=== PATIENT | female | born 1990 ===

== ENCOUNTER 2017-03-26 20:41 | Emergency (ER) | payer MEDICAID ==
[2017-03-26 20:41] VITALS: BMI 27.8
[2017-03-26 21:07] VITALS: BP 134/54; PULSE 72; RESP 16; TEMP 99.2; O2SAT 99
[2017-03-26] MEDS ORDERED: Sodium Chloride 0.9% 1,000 ML IV STA (21:45)
--- NOTE | 2017-03-26 21:46 | ED PDOC ---
HPI: Female Pain Time Seen by Provider: 03/26/17 21:09 Chief Complaint (Nursing): Female Genitourinary Chief Complaint (Provider): vaginal History Per: Patient History/Exam Limitations: no limitations Onset/Duration Of Symptoms: Days (5), Waxing/Waning Current Symptoms Are (Timing): Still Present Quality Of Discomfort: Cramping, "Pain" Additional History Per: Patient Additional Complaint(s): 26 y/o female presents with vaginal bleeding x 5 days. Associated pelvic pain, worse on right side, and vomiting 2x daily. Patient notes similar symptoms in past, states she was told she has an ovarian cysts. Denies fever, chest pain, shortness of breath, changes in bowel movements, dysuria, hematuria, vaginal discharge. No medication take for pain relief thus far. States periods usually regular, on OCP. Abnormal Vaginal Bleeding: Yes Last Menstral Period: 03/13/17 Past Medical History Reviewed: Historical Data, Nursing Documentation, Vital Signs Vital Signs: Last Vital Signs Temp 99.2 F 03/26/17 21:04 Pulse 72 03/26/17 21:04 Resp 16 03/26/17 21:04 BP 134/54 L 03/26/17 21:04 Pulse Ox 99 03/26/17 21:04 - Medical History PMH: Anxiety, Arthritis, Asthma, Back Problems, Depression, Fibromyalgia, Migraine, Multiple Sclerosis, Rheumatoid Arthritis - Family History Family History: States: Unknown Family Hx - Immunization History Hx Tetanus Toxoid Vaccination: No Hx Influenza Vaccination: No Hx Pneumococcal Vaccination: No - Home Medications Home Medications: Ambulatory Orders Medication Instructions Recorded Trazodone HCl 50 mg PO HS PRN 07/27/14 Famotidine 20 mg PO DAILY 04/17/16 Ferrous Sulfate 325 mg PO BID 04/17/16 Folic Acid 1 mg PO DAILY 04/17/16 Indomethacin 25 mg PO TID 04/17/16 Lexapro 20 mg PO DAILY 04/17/16 Mobic 15 mg PO DAILY 04/17/16 Riboflavin 100 mg PO TID 04/17/16 Topamax 100 mg PO BID 04/17/16 Meclizine [Meclizine*] 25 mg PO Q6 #30 tab 05/26/16 Ondansetron ODT [Zofran ODT] 1 odt PO BID PRN #10 odt 11/20/16 Ibuprofen [Motrin] 600 mg PO TID PRN #30 tab 08/14/16 Prednisone 50 mg PO DAILY #4 tablet 08/14/16 Nitrofurantoin Macrocrystals 100 mg PO BID #14 cap 03/27/17 [Macrobid] - Allergies Allergies/Adverse Reactions: Allergies Allergy/AdvReac Type Severity Reaction Status Date / Time latex Allergy RASH Verified 03/26/17 21:04 Review of Systems ROS Statement: Except As Marked, All Systems Reviewed And Found Negative Genitourinary Female: Positive for: Vaginal Bleeding, Pelvic Pain Physical Exam - Reviewed Nursing Documentation Reviewed: Yes Vital Signs Reviewed: Yes - Physical Exam Appears: Positive for: Well, Non-toxic, No Acute Distress Head Exam: Positive for: ATRAUMATIC, NORMAL INSPECTION, NORMOCEPHALIC Skin: Positive for: Normal Color Eye Exam: Positive for: Normal appearance ENT: Positive for: Normal ENT Inspection Cardiovascular/Chest: Positive for: Regular Rate, Rhythm Respiratory: Positive for: Normal Breath Sounds Gastrointestinal/Abdominal: Positive for: Tenderness (diffuse lower discomfort to palpation) Pelvic Exam: Positive for: External Exam Normal, No Cerv. Motion Tender, Blood ( vaginal vault), Other (exam chaperoned by [facility] tech). Negative for: Active Bleeding Back: Positive for: Normal Inspection Extremity: Positive for: Normal ROM Neurologic/Psych: Positive for: Alert, Oriented - Laboratory Results Result Diagrams: 03/26/17 21:50 03/26/17 22:44 - ECG O2 Sat by Pulse Oximetry: 99 - Progress ED Course And Treament: labs, urine, u/s, IV toradol, IV fluids, EXAM: US Pelvis, Transvaginal EXAM DATE/TIME: 03/26/2017 9:38 PM CLINICAL HISTORY: 26 years old, female; Signs and symptoms; Menstruation abnormalities; Irregular menstruation; Additional info: Pelvic pain, vaginal bleeding LMP 03/13/17 TECHNIQUE: Real-time transvaginal pelvic ultrasound (complete) with image documentation. Transvaginal imaging was used for better evaluation of the endometrium and adnexa. COMPARISON: There are no prior studies for comparison. FINDINGS: Uterus: Uterus measures approximately 8.6 x 3.5 x 5.4 cm. Endometrium measures approximately 3.4 mm in width. Right ovary: Right ovary measures 3.1 x 1.4 x 1.7 cm. There are multiple small follicles. There is intraovarian blood flow. Left ovary: Left ovary measures approximately 2.7 x 1.6 x 1.5 cm. There are multiple small follicles. There is intraovarian blood flow. Free fluid: There is no free fluid. Bladder: Bladder is empty IMPRESSION: Normal pelvic ultrasound Patient educated on u/s findings, still with RLQ pain; CT abd/pelvis ordered to rule out appendicitis EXAM: CT Abdomen and Pelvis With Intravenous Contrast EXAM DATE/TIME: 03/27/2017 12:01 AM CLINICAL HISTORY: 26 years old, female; Pain; Abdominal pain; Localized; Lower; Additional info: Lower abdominal pain TECHNIQUE: Axial computed tomography images of the abdomen and pelvis with intravenous contrast. All CT scans at this facility use one or more dose reduction techniques, viz.: automated exposure control; ma/kV adjustment per patient size (including targeted exams where dose is matched to indication; i.e. head); or iterative reconstruction technique. Coronal and sagittal reformatted images were created and reviewed. CONTRAST: 95 mL of [id number] administered intravenously. COMPARISON: US - TRANSVAGINAL 03/26/2017 10:49:46 PM FINDINGS: Lower thorax: Heart size is normal. There is minimal atelectasis at the lung bases. There is minimal scarring at the lung bases. There is a small hiatal hernia. ABDOMEN: Liver: The liver is enlarged. Gallbladder and bile ducts: unremarkable Pancreas: unremarkable Spleen: unremarkable Adrenals: unremarkable Kidneys and ureters: unremarkable Stomach and bowel: Stomach is incompletely distended which accentuates the gastric wall.Bowel rotation is normal. Small bowel is mildly distended. There is no obstruction. Cecum is low in the pelvis. Appendix and terminal ileum are unremarkable. There is moderate stool in the ascending and transverse colon. Left colon is incompletely distended. There is scattered diverticulosis Appendix: See stomach and bowel PELVIS: Bladder: unremarkable Reproductive: Uterus and adnexal structures are unremarkable. ABDOMEN and PELVIS: Intraperitoneal space: There is no significant fluid. There is no free air Bones/joints: There are no acute osseous abnormalities. There is sclerosis at the sacroiliac joints. Soft tissues: unremarkable Vasculature: Vascular structures are unremarkable. Lymph nodes: There is no pathologic adenopathy. IMPRESSION: Mild hepatomegaly; no acute solid visceral abnormality; no CT findings of appendicitis or diverticulitis Patient educated on findings, discharged with rx macrobid. Advised high fiber diet, fluids. 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 Disposition - Clinical Impression Clinical Impression: UTI (urinary tract infection), Pelvic pain in female, Constipation, Vaginal bleeding, abnormal - Patient ED Disposition Is Patient to be Admitted: No Counseled Patient/Family Regarding: Studies Performed, Diagnosis, Need For Followup, Rx Given - Disposition Disposition: Routine/Home Disposition Time: 01:10 Condition: IMPROVED Prescriptions: Nitrofurantoin Macrocrystals [Macrobid] 100 mg PO BID #14 cap Instructions: Urinary Tract Infection in Women (ED), Constipation (ED), High Fiber Diet (ED), Pelvic Pain in Women (ED)
[2017-03-26 22:04] LABS: BASO # 0.1 K/uL (0.0-0.2); BASO % 0.7 % (0.0-2.0); EOS # 0.1 K/uL (0.0-0.7); EOS % 0.7 % (0.0-4.0); HEMATOCRIT 34.3 % (34.0-47.0); LYMPH # 2.4 K/uL (1.0-4.3); MEAN CELL VOLUME 79.8 fl (81.0-99.0); MEAN CORPUSCULAR HEMOGLOBIN 25.5 pg (27.0-31.0); MEAN CORPUSCULAR HGB CONC 31.9 g/dL (33.0-37.0); MEAN PLATELET VOLUME 8.6 fl (7.2-11.7); MONO # 0.6 K/uL (0.0-0.8); MONO % 6.5 % (0.0-10.0); NEUT % 66.1 % (50.0-75.0); NRBC % 0.1 % (0.0-0.0); RED CELL DISTRIBUTION WIDTH 15.4 % (11.5-14.5); WHITE BLOOD COUNT 9.1 K/uL (4.8-10.8)
[2017-03-26 22:36] LABS: RBC URINE 12 /hpf (0-3); URINE BILIRUBIN NEGATIVE (NEGATIVE); URINE BLOOD LARGE (NEGATIVE); URINE COLOR YELLOW (YELLOW); URINE GLUCOSE (UA) NEG (Normal); URINE KETONE NEGATIVE (NEGATIVE); URINE LEUKOCYTE ESTERASE TRACE Leu/uL (Negative); URINE PROTEIN NEGATIVE (NEGATIVE); URINE UROBILINOGEN 0.2-1.0 mg/dL (0.2-1.0); WBC URINE 9 /hpf (0-5)
[2017-03-26 22:53] LABS: ALB/GLOB RATIO 1.1 (1.0-2.1); ALKALINE PHOSPHATASE 60 U/L (38-126); ALT/SGPT 26 U/L (9-52); AST/SGOT 21 U/L (14-36); BILIRUBIN,TOTAL 0.3 mg/dl (0.2-1.3); BLOOD UREA NITROGEN 10 mg/dl (7-17); CALCIUM 9.3 mg/dL (8.4-10.2); CARBON DIOXIDE 24 mmol/L (22-30); CHLORIDE 104 mmol/L (98-107); GFR AFRICAN-AMERICAN > 60; GLUCOSE,RANDOM 87 mg/dL (65-105); SODIUM 137 mmol/l (132-148); TOTAL PROTEIN 7.9 G/DL (6.3-8.2)
--- NOTE | 2017-03-26 23:44 | US ---
EXAM: US Pelvis, Transvaginal EXAM DATE/TIME: 03/26/2017 9:38 PM CLINICAL HISTORY: 26 years old, female; Signs and symptoms; Menstruation abnormalities; Irregular menstruation; Additional info: Pelvic pain, vaginal bleeding LMP 03/13/17 TECHNIQUE: Real-time transvaginal pelvic ultrasound (complete) with image documentation. Transvaginal imaging was used for better evaluation of the endometrium and adnexa. COMPARISON: There are no prior studies for comparison. FINDINGS: Uterus: Uterus measures approximately 8.6 x 3.5 x 5.4 cm. Endometrium measures approximately 3.4 mm in width. Right ovary: Right ovary measures 3.1 x 1.4 x 1.7 cm. There are multiple small follicles. There is intraovarian blood flow. Left ovary: Left ovary measures approximately 2.7 x 1.6 x 1.5 cm. There are multiple small follicles. There is intraovarian blood flow. Free fluid: There is no free fluid. Bladder: Bladder is empty IMPRESSION: Normal pelvic ultrasound
[2017-03-27] MEDS ORDERED: Iohexol 300 100 ML IJ ONE (00:27)
[2017-03-27] MEDS ORDERED: Sodium Chloride 0.9% 50 ML IV ONE (00:27)
--- NOTE | 2017-03-27 08:53 | CT ---
PROCEDURE: CT Abdomen and Pelvis with contrast HISTORY: lower abdominal pain COMPARISON: None. TECHNIQUE: Contrast dose: 95 cc of Omnipaque 300. Axial and reformatted coronal and sagittal CT images of the abdomen and pelvis were obtained after IV contrast administration. Radiation dose: Total exam DLP = 971.96 mGy-cm. This CT exam was performed using one or more of the following dose reduction techniques: Automated exposure control, adjustment of the mA and/or kV according to patient size, and/or use of iterative reconstruction technique. FINDINGS: LOWER THORAX: Unremarkable. LIVER: The liver is mildly enlarged demonstrate slight heterogeneous enhancement and attenuation without evidence of discrete mass. GALLBLADDER AND BILE DUCTS: Unremarkable. PANCREAS: Unremarkable. No gross lesion or ductal dilatation. SPLEEN: Unremarkable. ADRENALS: Unremarkable. No mass. KIDNEYS AND URETERS: Unremarkable. No hydronephrosis. No solid mass. VASCULATURE: Unremarkable. No aortic aneurysm. BOWEL: Unremarkable. No obstruction. No gross mural thickening. APPENDIX: Normal appendix. PERITONEUM: Unremarkable. No free fluid. No free air. LYMPH NODES: Unremarkable. No enlarged lymph nodes. BLADDER: Unremarkable. REPRODUCTIVE: The uterus is slightly prominent heterogeneous without evidence of discrete mass. BONES: No acute fracture. OTHER FINDINGS: None. IMPRESSION: No CT evidence of cholecystitis pancreatitis or appendicitis. Mild hepatomegaly with mild heterogeneous enhancement and attenuation of the liver noted without evidence of discrete mass. Preliminary report was submitted by virtual Radiology.
== END 2017-03-27 01:33 | disposition home or self-care (01) ==
LOC: H.ER 20:41
DX: N39.0 Urinary tract infection, site not specified (principal); K59.00 Constipation, unspecified; N92.6 Irregular menstruation, unspecified; N83.201 Unspecified ovarian cyst, right side; M79.7 Fibromyalgia; G35 Multiple sclerosis; M06.9 Rheumatoid arthritis, unspecified; F32.9 Major depressive disorder, single episode, unspecified; F41.9 Anxiety disorder, unspecified
CPT/HCPCS: 74177; 76830; 80053; 81003; 81025; 85025; 87086; 96374; 96375; 99283; J1885; J2405; J7040; Q9967

== ENCOUNTER 2017-04-02 15:07 | Emergency (ER) | payer MEDICAID ==
[2017-04-02 15:08] VITALS: BMI 27.8
[2017-04-02 15:17] VITALS: BP 152/80; PULSE 84; RESP 18; TEMP 98.5; O2SAT 98
[2017-04-02] MEDS ORDERED: Sodium Chloride 0.9% 1,000 ML IV STA (15:43)
--- NOTE | 2017-04-02 15:46 | ED PDOC ---
HPI: Headache Time Seen by Provider: 04/02/17 15:19 Chief Complaint (Nursing): Headache History Per: Patient Onset/Duration Of Symptoms: Days (1) Current Symptoms Are (Timing): Still Present Severity: Moderate Pain Scale Rating Of: 4 Quality: Aching Preceeding Symptoms: Known Migraine Symptoms Associated Symptoms: Photophobia Additional Complaint(s): Headache assoc with nausea since this AM. No head injury, no neck stiffness or fever. Past Medical History Vital Signs: Last Vital Signs Temp 98.5 F 04/02/17 15:10 Pulse 84 04/02/17 15:10 Resp 18 04/02/17 15:10 BP 152/80 H 04/02/17 15:10 Pulse Ox 98 04/02/17 15:10 - Medical History PMH: Anxiety, Arthritis, Asthma, Back Problems, Depression, Fibromyalgia, Migraine, Multiple Sclerosis, Rheumatoid Arthritis - Family History Family History: States: Unknown Family Hx - Immunization History Hx Tetanus Toxoid Vaccination: No Hx Influenza Vaccination: No Hx Pneumococcal Vaccination: No - Home Medications Home Medications: Ambulatory Orders Medication Instructions Recorded Trazodone HCl 50 mg PO HS PRN 07/27/14 Famotidine 20 mg PO DAILY 04/17/16 Ferrous Sulfate 325 mg PO BID 04/17/16 Folic Acid 1 mg PO DAILY 04/17/16 Indomethacin 25 mg PO TID 04/17/16 Lexapro 20 mg PO DAILY 04/17/16 Mobic 15 mg PO DAILY 04/17/16 Riboflavin 100 mg PO TID 04/17/16 Topamax 100 mg PO BID 04/17/16 Meclizine [Meclizine*] 25 mg PO Q6 #30 tab 05/26/16 Ondansetron ODT [Zofran ODT] 1 odt PO BID PRN #10 odt 05/26/16 Ibuprofen [Motrin] 600 mg PO TID PRN #30 tab 08/14/16 Prednisone 50 mg PO DAILY #4 tablet 08/14/16 Nitrofurantoin Macrocrystals 100 mg PO BID #14 cap 03/27/17 [Macrobid] Acetaminophen/Butalbital/Caf 1 tab PO Q8 #10 tab 04/02/17 [Fioricet] - Allergies Allergies/Adverse Reactions: Allergies Allergy/AdvReac Type Severity Reaction Status Date / Time latex Allergy RASH Verified 03/26/17 21:04 Review of Systems ROS Statement: Except As Marked, All Systems Reviewed And Found Negative Gastrointestinal: Positive for: Nausea Neurological: Positive for: Headache Physical Exam - Reviewed Nursing Documentation Reviewed: Yes Vital Signs Reviewed: Yes - Physical Exam Appears: Positive for: Non-toxic, No Acute Distress Head Exam: Positive for: ATRAUMATIC, NORMAL INSPECTION, NORMOCEPHALIC Skin: Positive for: Normal Color, Warm, DRY Eye Exam: Positive for: EOMI, Normal appearance, PERRL ENT: Positive for: Normal ENT Inspection Neck: Positive for: Normal, Painless ROM, Supple Cardiovascular/Chest: Positive for: Regular Rate, Rhythm Respiratory: Positive for: CNT, Normal Breath Sounds Gastrointestinal/Abdominal: Positive for: Normal Exam, Bowel Sounds, Soft Back: Positive for: Normal Inspection Extremity: Positive for: Normal ROM Neurologic/Psych: Positive for: Alert, Oriented - ECG O2 Sat by Pulse Oximetry: 98 Disposition - Clinical Impression Clinical Impression: Migraine - Patient ED Disposition Is Patient to be Admitted: No Counseled Patient/Family Regarding: Diagnosis, Need For Followup, Rx Given - Disposition Referrals: [facility] [Outside] Disposition: Routine/Home Disposition Time: 17:55 Condition: FAIR Prescriptions: Acetaminophen/Butalbital/Caf [Fioricet] 1 tab PO Q8 #10 tab Instructions: Migraine Headache (ED) Forms: [employer] (Persian)
== END 2017-04-02 18:45 | disposition home or self-care (01) ==
LOC: H.ER 15:07
DX: G43.909 Migraine, unspecified, not intractable, without status migrainosus (principal); F32.9 Major depressive disorder, single episode, unspecified; F41.9 Anxiety disorder, unspecified; G35 Multiple sclerosis; J45.909 Unspecified asthma, uncomplicated; M06.9 Rheumatoid arthritis, unspecified; M79.7 Fibromyalgia
CPT/HCPCS: 81025; 96374; 96375; 99284; J1885; J2405; J2765; J7040

== ENCOUNTER 2017-08-24 16:19 | Emergency (ER) | payer MEDICAID ==
[2017-08-24 16:20] VITALS: BMI 27.8
[2017-08-24 16:34] VITALS: TEMP 99.5
[2017-08-24] MEDS ORDERED: Sodium Chloride 0.9% 1,000 ML IV STA (17:20)
[2017-08-24] MEDS ORDERED: DiphenhydrAMINE 50 mg/ml Inj IVP STA (17:21)
[2017-08-24] MEDS ORDERED: DiphenhydrAMINE 50 mg/ml Inj ONE (17:46)
[2017-08-24 18:07] LABS: BASO % 0.4 % (0.0-2.0); EOS # 0.1 K/uL (0.0-0.7); EOS % 0.6 % (0.0-4.0); HEMOGLOBIN 11.5 g/dL (12.0-16.0); LYMPH # 2.7 K/uL (1.0-4.3); LYMPH % 28.7 % (20.0-40.0); MEAN CELL VOLUME 78.8 fl (81.0-99.0); MEAN CORPUSCULAR HEMOGLOBIN 25.2 pg (27.0-31.0); MEAN PLATELET VOLUME 8.8 fl (7.2-11.7); MONO # 0.7 K/uL (0.0-0.8); MONO % 7.2 % (0.0-10.0); NEUT % 63.1 % (50.0-75.0); RBC 4.58 Mil/uL (3.80-5.20); RED CELL DISTRIBUTION WIDTH 16.7 % (11.5-14.5); WHITE BLOOD COUNT 9.5 K/uL (4.8-10.8)
[2017-08-24 18:15] LABS: ALBUMIN 4.3 g/dL (3.5-5.0); CALCIUM 9.5 mg/dL (8.4-10.2); GFR AFRICAN-AMERICAN > 60; GFR NON-AFRICAN AMERICAN > 60
[2017-08-24 18:19] LABS: ALT/SGPT 27 U/L (9-52); AST/SGOT 28 U/L (14-36); BLOOD UREA NITROGEN 15 mg/dl (7-17)
[2017-08-24 18:26] LABS: BARBITURATES, UR NEGATIVE (NEGATIVE); BENZODIAZEPINES, UR NEGATIVE (NEGATIVE); OPIATES, UR NEGATIVE (NEGATIVE); PHENCYCLIDINE, UR NEGATIVE (NEGATIVE)
--- NOTE | 2017-08-24 19:05 | ED PDOC ---
HPI: Headache Time Seen by Provider: 08/24/17 17:11 Chief Complaint (Nursing): Shortness Of Breath Chief Complaint (Provider): Headache History Per: Patient History/Exam Limitations: no limitations Onset/Duration Of Symptoms: Days (x5) Current Symptoms Are (Timing): Still Present Quality: "Pain" Preceeding Symptoms: None Additional Complaint(s): 26 year old female with a past medical history of anemia, asthma and migraine headaches presents to the ED complaining of a left sided headache she has been experiencing since Friday. The patient states she has been taking topamax and meclizine with no relief. She reports that her headache is associated with left sided facial numbness, dizziness, vertigo, vomiting, nausea and paresthesia to left arm. Patient states that she has experienced all of these symptoms in the past. Patient states that she presents to the ER today because the headache has been going on for too long and her medications are not working. PMD: Dr. Shin Past Medical History Reviewed: Historical Data, Nursing Documentation, Vital Signs Vital Signs: Last Vital Signs Temp 99.5 F 08/24/17 16:29 Pulse 82 08/24/17 16:29 Resp 16 08/24/17 16:29 BP 115/74 08/24/17 16:29 Pulse Ox 98 08/24/17 17:42 - Medical History PMH: Anemia, Anxiety, Arthritis, Asthma, Back Problems, Depression, Fibromyalgia , Migraine, Multiple Sclerosis, Rheumatoid Arthritis - Surgical History Surgical History: No Surg Hx - Family History Family History: States: Unknown Family Hx, CAD - Social History Alcohol: Occasional Drugs: Other (Medicinal marijuana for nausea) - Immunization History Hx Tetanus Toxoid Vaccination: No Hx Influenza Vaccination: No Hx Pneumococcal Vaccination: No - Home Medications Home Medications: Ambulatory Orders Medication Instructions Recorded Trazodone HCl 50 mg PO HS PRN 07/27/14 Famotidine 20 mg PO DAILY 04/17/16 Ferrous Sulfate 325 mg PO BID 04/17/16 Folic Acid 1 mg PO DAILY 04/17/16 Indomethacin 25 mg PO TID 04/17/16 Lexapro 20 mg PO DAILY 04/17/16 Mobic 15 mg PO DAILY 04/17/16 Riboflavin 100 mg PO TID 04/17/16 Topamax 100 mg PO BID 04/17/16 Meclizine [Meclizine*] 25 mg PO Q6 #30 tab 05/26/16 Ondansetron ODT [Zofran ODT] 1 odt PO BID PRN #10 odt 05/26/16 Ibuprofen [Motrin] 600 mg PO TID PRN #30 tab 08/14/16 Prednisone 50 mg PO DAILY #4 tablet 08/14/16 Nitrofurantoin Macrocrystals 100 mg PO BID #14 cap 03/27/17 [Macrobid] Acetaminophen/Butalbital/Caf 1 tab PO Q8 #10 tab 04/02/17 [Fioricet] Albuterol HFA [Ventolin HFA 90 2 puff IH 07/22/17 mcg/actuation (8 g)] Loratadine/Pseudoephedrine 5 - 120 mg PO 07/22/17 [Claritin-D 24 Hour Tablet] Meclizine HCl [Motion Sickness II] 25 mg PO 07/22/17 Ondansetron ODT [Zofran ODT] 1 odt PO Q6 PRN #20 odt 08/24/17 - Allergies Allergies/Adverse Reactions: Allergies Allergy/AdvReac Type Severity Reaction Status Date / Time latex Allergy RASH Verified 03/26/17 21:04 Latex, Natural Rubber AdvReac RASH Verified 07/04/17 11:49 Review of Systems ROS Statement: Except As Marked, All Systems Reviewed And Found Negative Gastrointestinal: Positive for: Nausea Neurological: Positive for: Numbness (left sided facial), Headache, Dizziness, Other (paresthesia to left arm) Physical Exam - Reviewed Nursing Documentation Reviewed: Yes Vital Signs Reviewed: Yes - Physical Exam Appears: Positive for: Well, Non-toxic Head Exam: Positive for: ATRAUMATIC, NORMOCEPHALIC Skin: Positive for: Warm, Dry Eye Exam: Positive for: EOMI, PERRL ENT: Negative for: Pharyngeal Erythema, Tonsillar Exudate Neck: Positive for: Painless ROM, Supple Cardiovascular/Chest: Positive for: Regular Rate, Rhythm, Chest Non Tender. Negative for: Murmur Respiratory: Positive for: Normal Breath Sounds. Negative for: Wheezing Gastrointestinal/Abdominal: Positive for: Soft. Negative for: Tenderness Back: Positive for: Normal Inspection. Negative for: Muscle Spasm Extremity: Positive for: Normal ROM. 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 Negative for: Motor/Sensory Deficits, Gait, Aphasia, Facial Droop - Laboratory Results Result Diagrams: 08/24/17 17:59 08/24/17 17:59 - ECG O2 Sat by Pulse Oximetry: 98 (RA) Pulse Ox Interpretation: Normal Medical Decision Making Medical Decision Makin Initial Impression 26 y/o female presenting with intractable migraine headache Initial Plan: * Type and Screen * EKG * CMP * Drug Screen * Magnesium * Phosphorous * TSH * Troponin * Upreg * Udip * CBC * Benadryl 25mg * IVP NS 1000mls * IV 999 mls/hr * Reglan 10mg IVP * Toradol 30mg IVP * Tylenol 975mg PO * Reevaluation 10p on initial eval pt was still nauseous. additional zofran given. reeval pt feeling better. labs mild anemia, otherwise unremarkable. stable for dc. Documented by Vivian Gomes acting as a scribe for Samantha Bobby MD. All medical record entries made by the Scribe were at my direction and personally dictated by me. I have reviewed the chart and agree that the record accurately reflects my personal performance of the history, physical exam, medical decision making, and the department course for this patient. I have also personally directed, reviewed, and agree with the discharge instructions and disposition. Disposition - Clinical Impression Clinical Impression: Migraine - Disposition Referrals: Sumeet Shin MD [Medical Doctor] - Disposition: Routine/Home Disposition Time: 23:01 Condition: IMPROVED Prescriptions: Ondansetron ODT [Zofran ODT] 1 odt PO Q6 PRN #20 odt PRN Reason: Nausea/Vomiting Instructions: Migraine Headache (DC) Forms: [facility] ED School/Work Excuse
[2017-08-24 19:21] VITALS: BP 115/64; PULSE 63; RESP 14
[2017-08-24] MEDS ORDERED: Dextrose 5%/Lactated Ringer's 1,000 ML IV SCH (20:00)
[2017-08-24 22:59] VITALS: O2SAT 98
--- NOTE | 2017-08-25 21:49 | CARD ---
APPROVED REPORT EKG Measurement Heart [id number] <Conclusion> Normal sinus rhythm Possible Left atrial enlargement Borderline ECG
== END 2017-08-24 23:45 | disposition home or self-care (01) ==
LOC: H.ER 16:19
DX: G43.919 Migraine, unspecified, intractable, without status migrainosus (principal); D64.9 Anemia, unspecified; F32.9 Major depressive disorder, single episode, unspecified; F41.9 Anxiety disorder, unspecified; G35 Multiple sclerosis; J45.909 Unspecified asthma, uncomplicated; M06.9 Rheumatoid arthritis, unspecified; M79.7 Fibromyalgia
CPT/HCPCS: 80053; 80324; 80345; 80346; 80349; 80353; 80358; 80361; 81025; 83735; 83992; 84100; 84443; 84484; 85025; 86850; 86900; 93005; 96374; 96375; 99283; J1200; J1885; J2405; J2765; J7040; J7120

== ENCOUNTER 2017-11-11 21:35 | Emergency (ER) | payer MEDICAID ==
[2017-11-11 21:36] VITALS: BMI 27.8
[2017-11-11 21:47] VITALS: O2SAT 100
[2017-11-11] MEDS ORDERED: Sodium Chloride 0.9% 1,000 ML IV STA (22:10)
[2017-11-11 22:14] VITALS: RESP 18
--- NOTE | 2017-11-11 22:23 | ED PDOC ---
HPI: Chest Pain Time Seen by Provider: 11/11/17 21:48 Chief Complaint (Nursing): Chest Pain Chief Complaint (Provider): chest pain History Per: Patient History/Exam Limitations: no limitations Onset/Duration Of Symptoms: Days (yesterday) Current Symptoms Are (Timing): Still Present Additional Complaint(s): Pt. dx with strep throat yesterday and put on bactrim. Pt. here today as her chest hurts and pain on taking deep breath. Also has cough, nasal congestion. No weakness, diarrhea, headaches, dizziness, neck pain. Able to swallow but with pain. No dyspnea. No abd pain. Has promethazine with codeine for pain. Past Medical History Reviewed: Nursing Documentation, Vital Signs Vital Signs: Last Vital Signs Temp 98.9 F 11/11/17 21:40 Pulse 76 11/11/17 21:55 Resp 18 11/11/17 21:55 BP 136/83 11/11/17 21:55 Pulse Ox 100 11/11/17 22:27 - Medical History PMH: Anemia, Anxiety, Arthritis, Asthma, Back Problems, Depression, Fibromyalgia , Migraine, Multiple Sclerosis, Rheumatoid Arthritis - Surgical History Surgical History: Denies: CABG - Family History Family History: States: Unknown Family Hx - Social History Alcohol: None - Immunization History Hx Tetanus Toxoid Vaccination: No Hx Influenza Vaccination: No Hx Pneumococcal Vaccination: No - Home Medications Home Medications: Ambulatory Orders Medication Instructions Recorded Trazodone HCl 50 mg PO HS PRN 07/27/14 Famotidine 20 mg PO DAILY 04/17/16 Ferrous Sulfate 325 mg PO BID 04/17/16 Folic Acid 1 mg PO DAILY 04/17/16 Indomethacin 25 mg PO TID 04/17/16 Lexapro 20 mg PO DAILY 04/17/16 Mobic 15 mg PO DAILY 04/17/16 Riboflavin 100 mg PO TID 04/17/16 Topamax 100 mg PO BID 04/17/16 Meclizine [Meclizine*] 25 mg PO Q6 #30 tab 05/26/16 Ondansetron ODT [Zofran ODT] 1 odt PO BID PRN #10 odt 05/26/16 Ibuprofen [Motrin] 600 mg PO TID PRN #30 tab 08/14/16 Prednisone 50 mg PO DAILY #4 tablet 08/14/16 Nitrofurantoin Macrocrystals 100 mg PO BID #14 cap 03/27/17 [Macrobid] Acetaminophen/Butalbital/Caf 1 tab PO Q8 #10 tab 04/02/17 [Fioricet] Albuterol HFA [Ventolin HFA 90 2 puff IH 07/22/17 mcg/actuation (8 g)] Loratadine/Pseudoephedrine 5 - 120 mg PO 07/22/17 [Claritin-D 24 Hour Tablet] Meclizine HCl [Motion Sickness II] 25 mg PO 07/22/17 Ondansetron ODT [Zofran ODT] 1 odt PO Q6 PRN #20 odt 08/24/17 Ibuprofen [Motrin] 600 mg PO TID 7 Days tab 11/11/17 - Allergies Allergies/Adverse Reactions: Allergies Allergy/AdvReac Type Severity Reaction Status Date / Time latex Allergy RASH Verified 03/26/17 21:04 Latex, Natural Rubber AdvReac RASH Verified 07/04/17 11:49 Review of Systems ROS Statement: Except As Marked, All Systems Reviewed And Found Negative ENT: Positive for: Nose Pain, Nose Discharge, Nose Congestion, Throat Pain Cardiovascular: Positive for: Chest Pain Respiratory: Positive for: Cough, Pleuritic Pain Physical Exam - Reviewed Nursing Documentation Reviewed: Yes Vital Signs Reviewed: Yes - Physical Exam Appears: Positive for: Non-toxic, No Acute Distress Head Exam: Positive for: ATRAUMATIC, NORMAL INSPECTION, NORMOCEPHALIC Skin: Positive for: Normal Color, Warm, DRY Eye Exam: Positive for: EOMI, Normal appearance, PERRL ENT: Positive for: Nasal Congestion, Pharyngeal Erythema, Tonsillar Swelling ( mild b/l). Negative for: Tonsillar Exudate Neck: Positive for: Normal, Painless ROM Cardiovascular/Chest: Positive for: Regular Rate, Rhythm Respiratory: Positive for: CNT, Normal Breath Sounds Gastrointestinal/Abdominal: Positive for: Normal Exam, Soft. Negative for: Tenderness Back: Positive for: Normal Inspection. Negative for: L CVA Tenderness, R CVA Tenderness Extremity: Positive for: Normal ROM. 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 Negative for: Motor/Sensory Deficits, Facial Droop - Laboratory Results Result Diagrams: 11/11/17 22:22 05/08/18 22:22 Interpretation Of Abn Labs: 11.5 wbc - ECG ECG: Positive for: Interpreted By Me, Viewed By Me ECG Rhythm: Positive for: Normal QRS, Normal ST Segment, Sinus Rhythm O2 Sat by Pulse Oximetry: 100 Pulse Ox Interpretation: Normal - Radiology X-Ray: Interpreted by Me, Viewed By Me X-Ray Interpretation: No Acute Disease - Progress ED Course And Treament: 1131: Stable. AAOx3. Pain free. Tolerated PO. Fu with pcp. Disposition - Clinical Impression Clinical Impression: Chest pain, Pharyngitis - Patient ED Disposition Is Patient to be Admitted: No Counseled Patient/Family Regarding: Studies Performed, Diagnosis, Need For Followup, Rx Given - Disposition Referrals: Arjun Wolf MD [Family Provider] - 11/12/17 Disposition: Routine/Home Disposition Time: 23:15 Condition: STABLE Additional Instructions: Return if not better in 3 days. Continue your antibiotics without fail. Prescriptions: Ibuprofen [Motrin] 600 mg PO TID 7 Days tab Instructions: Sore Throat in Adults, Chest Pain (DC) Forms: [employer] ([employer]), [facility] ED School/Work Excuse
[2017-11-11 22:33] LABS: BASO % 0.4 % (0.0-2.0); EOS # 0.1 K/uL (0.0-0.7); EOS % 0.7 % (0.0-4.0); HEMOGLOBIN 10.7 g/dL (12.0-16.0); LYMPH # 2.7 K/uL (1.0-4.3); LYMPH % 23.8 % (20.0-40.0); MEAN CELL VOLUME 79.3 fl (81.0-99.0); MEAN CORPUSCULAR HEMOGLOBIN 25.8 pg (27.0-31.0); MEAN CORPUSCULAR HGB CONC 32.5 g/dL (33.0-37.0); MEAN PLATELET VOLUME 8.7 fl (7.2-11.7); MONO # 0.9 K/uL (0.0-0.8); MONO % 7.9 % (0.0-10.0); NEUT # 7.7 K/uL (1.8-7.0); NEUT % 67.2 % (50.0-75.0); NRBC % 0.1 % (0.0-0.0); RBC 4.15 Mil/uL (3.80-5.20); RED CELL DISTRIBUTION WIDTH 15.4 % (11.5-14.5); WHITE BLOOD COUNT 11.5 K/uL (4.8-10.8)
[2017-11-11 22:36] LABS: BLOOD UREA NITROGEN 13 mg/dl (7-17); GFR AFRICAN-AMERICAN > 60; GFR NON-AFRICAN AMERICAN > 60
[2017-11-12 00:13] VITALS: BP 117/72; PULSE 66; TEMP 98.6
--- NOTE | 2017-11-12 08:00 | RAD ---
HISTORY: Chest pain, shortness of breath COMPARISON: No prior. FINDINGS: LUNGS: No active pulmonary disease. PLEURA: No significant pleural effusion identified, no pneumothorax apparent. CARDIOVASCULAR: Normal. OSSEOUS STRUCTURES: No significant abnormalities. VISUALIZED UPPER ABDOMEN: Normal. OTHER FINDINGS: None. IMPRESSION: No active disease. Concordant results with the preliminary interpretation rendered by the emergency department physician procedure.
--- NOTE | 2017-11-13 12:27 | CARD ---
APPROVED REPORT EKG Measurement Heart [id number] <Conclusion> Normal sinus rhythm Normal ECG
== END 2017-11-12 00:13 | disposition home or self-care (01) ==
LOC: H.ER 21:35
DX: R07.89 Other chest pain (principal); J02.9 Acute pharyngitis, unspecified; F32.9 Major depressive disorder, single episode, unspecified; F41.9 Anxiety disorder, unspecified; G35 Multiple sclerosis; J45.909 Unspecified asthma, uncomplicated; M06.9 Rheumatoid arthritis, unspecified; M79.7 Fibromyalgia
CPT/HCPCS: 71045; 80048; 81025; 84484; 85025; 87070; 87430; 93005; 96361; 96374; 99285; J1885; J7040

== ENCOUNTER 2017-11-16 11:06 | Emergency (ER) | payer MEDICAID ==
[2017-11-16 11:08] VITALS: BMI 27.8
[2017-11-16] MEDS ORDERED: Penicillin G Benzathine 1.2 Mill Unit/2 ml Syr IM ONE (11:56)
--- NOTE | 2017-11-16 12:59 | ED PDOC ---
HPI: CCC, URI, Sore Throat Time Seen by Provider: 11/16/17 11:17 Chief Complaint (Nursing): ENT Problem Chief Complaint (Provider): fever History Per: Patient History/Exam Limitations: no limitations Have you had recent travel within the past 21 days to any of the following countries: [place], [place], [place] or [place]?: No Onset/Duration Of Symptoms: Days Current Symptoms Are (Timing): Still Present Location Of Pain: None Associated Symptoms: Fever, Sore Throat Ear Symptoms: Bilateral: None Severity: None Additional Complaint(s): 27 year old female presenting with fever ad sore throat x1 week. Patient reports that she was recently seen by her primary care provider and prescribed bactrim. She states that even after taking the antibiotic x 1 week, her symptoms still persisted. Patient also states that she does have a history of recurrent throat infections and has been seen by ENT for these infections in the past. Otherwise (-) rash, (-) difficulty swallowing, (-) URI symptoms, (-) SOB, (-) chest pain, (-) N/V/D, (-) abdominal pain, (-) flank pain, (-) urinary symptoms, (-) recent travel, (-) sick contacts. PMD: Arjun George Past Medical History Reviewed: Historical Data, Nursing Documentation, Vital Signs Vital Signs: Last Vital Signs Temp 98.9 F 11/16/17 13:16 Pulse 88 11/16/17 13:16 Resp 15 11/16/17 13:16 BP 115/75 11/16/17 13:16 Pulse Ox 100 11/16/17 13:16 - Medical History PMH: Anemia, Anxiety, Arthritis, Asthma, Back Problems, Depression, Fibromyalgia , Migraine, Multiple Sclerosis, Rheumatoid Arthritis - Surgical History Surgical History: Denies: CABG - Family History Family History: States: Unknown Family Hx, CAD - Social History Current smoker - smoking cessation education provided: No Ex-Smoker (has not smoked in the last 12 months): No Alcohol: Social Drugs: Denies - Immunization History Hx Tetanus Toxoid Vaccination: No Hx Influenza Vaccination: No Hx Pneumococcal Vaccination: No - Home Medications Home Medications: Ambulatory Orders Medication Instructions Recorded Trazodone HCl 50 mg PO HS PRN 07/27/14 Famotidine 20 mg PO DAILY 10/12/16 Ferrous Sulfate 325 mg PO BID 04/17/16 Folic Acid 1 mg PO DAILY 04/17/16 Indomethacin 25 mg PO TID 04/17/16 Lexapro 20 mg PO DAILY 04/17/16 Mobic 15 mg PO DAILY 04/17/16 Riboflavin 100 mg PO TID 04/17/16 Topamax 100 mg PO BID 04/17/16 Meclizine [Meclizine*] 25 mg PO Q6 #30 tab 05/26/16 Ondansetron ODT [Zofran ODT] 1 odt PO BID PRN #10 odt 05/26/16 Ibuprofen [Motrin] 600 mg PO TID PRN #30 tab 08/14/16 Prednisone 50 mg PO DAILY #4 tablet 08/14/16 Nitrofurantoin Macrocrystals 100 mg PO BID #14 cap 03/27/17 [Macrobid] Acetaminophen/Butalbital/Caf 1 tab PO Q8 #10 tab 04/02/17 [Fioricet] Albuterol HFA [Ventolin HFA 90 2 puff IH 07/22/17 mcg/actuation (8 g)] Loratadine/Pseudoephedrine 5 - 120 mg PO 07/22/17 [Claritin-D 24 Hour Tablet] Meclizine HCl [Motion Sickness II] 25 mg PO 07/22/17 Ondansetron ODT [Zofran ODT] 1 odt PO Q6 PRN #20 odt 08/24/17 Ibuprofen [Motrin] 600 mg PO TID 7 Days tab 11/11/17 - Allergies Allergies/Adverse Reactions: Allergies Allergy/AdvReac Type Severity Reaction Status Date / Time latex Allergy RASH Verified 03/26/17 21:04 Latex, Natural Rubber AdvReac RASH Verified 07/04/17 11:49 Review of Systems ROS Statement: Except As Marked, All Systems Reviewed And Found Negative Constitutional: Positive for: Fever ENT: Positive for: Throat Pain. Negative for: Nose Discharge, Throat Swelling Cardiovascular: Negative for: Chest Pain Respiratory: Negative for: Cough, Shortness of Breath Physical Exam - Reviewed Nursing Documentation Reviewed: Yes Vital Signs Reviewed: Yes - Physical Exam Appears: Positive for: Well, Non-toxic, No Acute Distress (speaking in full sentences, no drooling, speech is normal) Head Exam: Positive for: ATRAUMATIC, NORMAL INSPECTION, NORMOCEPHALIC Skin: Positive for: Normal Color, Warm, Dry. Negative for: Rash Eye Exam: Positive for: Normal appearance, EOMI, PERRL. Negative for: Nystagmus ENT: Positive for: Pharynx Is (erythematous left greater than right), Tonsillar Swelling (L>R), Other (uvular midline). Negative for: Nasal Congestion, Pharyngeal Erythema, Tonsillar Exudate Neck: Positive for: Normal, Painless ROM, Supple Cardiovascular/Chest: Positive for: Regular Rate, Rhythm, Chest Non Tender. Negative for: Tachycardia Respiratory: Positive for: Normal Breath Sounds. Negative for: Rales, Rhonchi, Wheezing, Respiratory Distress Gastrointestinal/Abdominal: Positive for: Normal Exam, Bowel Sounds, Soft. Negative for: Tenderness, Mass, Guarding, Rebound Back: Positive for: Normal Inspection. Negative for: L CVA Tenderness, R CVA Tenderness Extremity: Positive for: Normal ROM. 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 Negative for : Motor/Sensory Deficits - ECG O2 Sat by Pulse Oximetry: 99 (RA) Pulse Ox Interpretation: Normal Medical Decision Making Medical Decision Makin Initial Impression 27 year old female presenting with pharyngitis Initial plan: * Bicillin L-A inj [id number] IM * Decadron inj 10 mg IM * Motrin tab 600 mg PO * Reevaluation Patient still encouraged to complete full course of bactrim, as she only has 3 days left to take of a 10 day course and follow up with both ENT and PMD. Advised to follow up with primary care physician and ENT in 1-2 days without fail. Return to the emergency room at any time for any new or worsening symptoms. Patient states she fully agrees with and understands discharge instructions. States that she agrees with the plan and disposition. Verbalized and repeated discharge instructions and plan. I have given the patient opportunity to ask any additional questions. Documented by Vivian Gomes acting as a scribe for Rosana Driscoll PA-C. All medical record entries made by the Scribe were at my direction and personally dictated by me. I have reviewed the chart and agree that the record accurately reflects my personal performance of the history, physical exam, medical decision making, and the department course for this patient. I have also personally directed, reviewed, and agree with the discharge instructions and disposition. Disposition - Clinical Impression Clinical Impression: Pharyngitis - Patient ED Disposition Is Patient to be Admitted: No Counseled Patient/Family Regarding: Studies Performed, Diagnosis - Disposition Disposition: Routine/Home Disposition Time: 12:45 Condition: STABLE Additional Instructions: Thank you for letting us take care of you today. You were treated for pharyngitis. The emergency medical care you received today was directed at your acute symptoms. Finish full course of bactrim as prescribed by your pmd. It may take several days for your symptoms to resolve. Return to the Emergency Department if your symptoms worsen, do not improve, or if you have any other problems. Please contact your primary care doctor and ENT doctor in 2 days for re- evaluation and follow up. Bring any paperwork you were given at discharge with you along with any medications you are taking to your follow up visit. Our treatment cannot replace ongoing medical care by a primary care provider (PCP) outside of the emergency department. Thank you for allowing the [facility] team to be part of your care today. 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
[2017-11-16 13:17] VITALS: BP 115/75; PULSE 88; RESP 15; TEMP 98.9
[2017-11-16 14:33] VITALS: O2SAT 99
== END 2017-11-16 13:17 | disposition home or self-care (01) ==
LOC: H.ER 11:06
DX: J02.9 Acute pharyngitis, unspecified (principal)
CPT/HCPCS: 81025; 96372; 99283; J0561; J1100

== ENCOUNTER 2018-05-05 17:24 | Emergency (ER) | payer OTHER, MEDICAID ==
[2018-05-05 17:24] VITALS: BMI 30.7
[2018-05-05 17:34] VITALS: O2SAT 100
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
--- NOTE | 2018-05-05 18:53 | CT ---
Date of service: 05/05/2018 PROCEDURE: CT HEAD WITHOUT CONTRAST. HISTORY: headache COMPARISON: None available. TECHNIQUE: Axial computed tomography images were obtained through the head/brain without intravenous contrast. Radiation dose: Total exam DLP = 796.19 mGy-cm. This CT exam was performed using one or more of the following dose reduction techniques: Automated exposure control, adjustment of the mA and/or kV according to patient size, and/or use of iterative reconstruction technique. FINDINGS: HEMORRHAGE: No intracranial hemorrhage. BRAIN: No mass effect or edema. No atrophy or chronic microvascular ischemic changes. VENTRICLES: No hydrocephalus. CALVARIUM: Unremarkable. PARANASAL SINUSES: Unremarkable as visualized. No significant inflammatory changes. MASTOID AIR CELLS: Unremarkable as visualized. No inflammatory changes. OTHER FINDINGS: None. IMPRESSION: No acute intracranial pathology identified.
--- NOTE | 2018-05-05 19:01 | CT ---
Date of service: 05/05/2018 CT cervical spine without IV contrast Indication: Neck pain Comparison: None available. Technique: Axial computed tomography images were obtained of the cervical spine without the use of intravenous contrast. Coronal and sagittal reformatted images were created and reviewed. This CT exam was performed using 1 or more of the following dose reduction techniques: Automated exposure control, adjustment of the MAA and/or kV according to patient size, and/or use of iterative reconstruction technique. Radiation dose: Total exam DLP = 312.55 mGy-cm. Findings: Straightening of the normal cervical lordosis may be related to muscle spasm or positioning. There is no evidence of acute fracture or subluxation. There is preserved alignment, vertebral body height, intervertebral disc spaces. The prevertebral soft tissues and spinolaminar lines appear intact. The lateral masses are preserved. The dens tip is intact. There is proper alignment of the lateral masses of C1 with the C2 vertebral body. Included portions of the thyroid gland appear unremarkable. Included portions of lung apices appear clear. Impression: Straightening of the normal cervical lordosis may be related to muscle spasm or positioning. No evidence of acute fracture or subluxation. If symptoms persist, suggest MRI for further evaluation.
[2018-05-05 21:37] VITALS: BP 134/75; PULSE 60; RESP 18; TEMP 98.1
--- NOTE | 2018-05-06 10:28 | RAD ---
Date of service: 05/05/2018 PROCEDURE: Radiographs of the Lumbar Spine. HISTORY: back pain COMPARISON: CT scan of the abdomen pelvis dated 03/27/2017. FINDINGS: BONES: Normal alignment. No listhesis. No fracture. DISC SPACES: Unremarkable. OTHER FINDINGS: None. IMPRESSION: Unremarkable radiographs of the lumbar spine.
== END 2018-05-05 21:24 | disposition home or self-care (01) ==
LOC: H.ER 17:24
DX: S09.90XA Unspecified injury of head, initial encounter (principal); V43.62XA Car passenger injured in collision with other type car in traffic accident, initial encounter; Y92.410 Unspecified street and highway as the place of occurrence of the external cause

== ENCOUNTER 2018-05-22 14:06 | Emergency (ER) | payer MEDICAID, OTHER ==
[2018-05-22 14:07] VITALS: BMI 30.7
--- NOTE | 2018-05-22 14:46 | ED PDOC ---
HPI: Female Pain Time Seen by Provider: 05/22/18 14:24 Chief Complaint (Nursing): Female Genitourinary Chief Complaint (Provider): Urinary problems and abdominal pain History Per: Patient History/Exam Limitations: no limitations Onset/Duration Of Symptoms: Days (x3) Current Symptoms Are (Timing): Still Present Additional Complaint(s): Natalia Zhou, a 27 year old female, presents to the ED complaining of urinary problems and abdominal pain onset x3 days. She reports frequent urination, suprapubic pain and discomfort, lower abdominal pain, and back pain. She states going to see her doctor and was diagnosed with a UTI. Patient reports being prescribed Macrobid and Pyridium, but she has not taken any yet. Patient states she woke up this morning and had pink urine and called the doctors office afterwards. The nurse informed her to go to the ED. She denies vomiting, fever, vaginal bleeding, vaginal discharge, and a past history of UTI. She also states last week she was diagnosed with a yeast infection that was resolved after taking medications. Patient reports having a IUD contraceptive. PCP: Dr. Arjun Wolf Past Medical History Reviewed: Historical Data, Nursing Documentation, Vital Signs Vital Signs: Last Vital Signs Temp 98.5 F 05/22/18 14:10 Pulse 76 05/22/18 14:10 Resp 18 05/22/18 14:10 BP 123/76 05/22/18 14:10 Pulse Ox 99 05/22/18 14:10 - Medical History PMH: Anemia, Anxiety, Arthritis, Asthma (NEVER HOSPITALIZED), Back Problems, Depression, Fibromyalgia, Gastritis (NO LONGER ON MED.), Migraine, Multiple Sclerosis, Rheumatoid Arthritis Denies: Chronic Kidney Disease - Surgical History Surgical History: Endoscopy, Tonsillectomy Denies: CABG - Family History Family History: States: CAD - Immunization History Hx Tetanus Toxoid Vaccination: No Hx Influenza Vaccination: No Hx Pneumococcal Vaccination: No - Home Medications Home Medications: Ambulatory Orders Medication Instructions Recorded Trazodone HCl 50 mg PO HS PRN 07/27/14 Famotidine 20 mg PO DAILY 04/17/16 Ferrous Sulfate 325 mg PO BID 04/17/16 Folic Acid 1 mg PO DAILY 04/17/16 Indomethacin 25 mg PO TID 04/17/16 Lexapro 20 mg PO DAILY 04/17/16 Mobic 15 mg PO DAILY 04/17/16 Riboflavin 100 mg PO TID 04/17/16 Topamax 100 mg PO BID 04/17/16 Ondansetron ODT [Zofran ODT] 1 odt PO BID PRN #10 odt 05/26/16 RX: Meclizine [Meclizine*] 25 mg PO Q6 #30 tab 05/26/16 Ibuprofen [Motrin] 600 mg PO TID PRN #30 tab 08/14/16 RX: Prednisone 50 mg PO DAILY #4 tablet 08/14/16 Nitrofurantoin Macrocrystals 100 mg PO BID #14 cap 03/27/17 [Macrobid] Acetaminophen/Butalbital/Caf 1 tab PO Q8 #10 tab 04/02/17 [Fioricet] Albuterol HFA [Ventolin HFA 90 2 puff IH 07/22/17 mcg/actuation (8 g)] Loratadine/Pseudoephedrine 5 - 120 mg PO 07/22/17 [Claritin-D 24 Hour Tablet] Meclizine HCl [Motion Sickness II] 25 mg PO 07/22/17 Ondansetron ODT [Zofran ODT] 1 odt PO Q6 PRN #20 odt 08/24/17 Ibuprofen [Motrin] 600 mg PO TID 7 Days tab 11/11/17 PrednisoLONE [Prelone] 40 mg PO DAILY #1 bottle 01/23/18 - Allergies Allergies/Adverse Reactions: Allergies Allergy/AdvReac Type Severity Reaction Status Date / Time latex Allergy RASH Verified 03/26/17 21:04 Latex, Natural Rubber AdvReac RASH Verified 07/04/17 11:49 Review of Systems ROS Statement: Except As Marked, All Systems Reviewed And Found Negative Constitutional: Negative for: Fever Gastrointestinal: Positive for: Abdominal Pain (lower abdomen and suprapubic pain and discomfort). Negative for: Vomiting Genitourinary Female: Positive for: Frequency. Negative for: Vaginal Discharge, Vaginal Bleeding Musculoskeletal: Positive for: Back Pain (lower) Physical Exam - Reviewed Nursing Documentation Reviewed: Yes Vital Signs Reviewed: Yes - Physical Exam Skin: Positive for: Normal Color, Warm Cardiovascular/Chest: Positive for: Regular Rate, Rhythm. Negative for: Murmur Respiratory: Positive for: Normal Breath Sounds. Negative for: Respiratory Distress Gastrointestinal/Abdominal: Positive for: Tenderness (mild suprapubic tenderness) Back: Positive for: Normal Inspection. Negative for: L CVA Tenderness, R CVA Tenderness Extremity: Positive for: Normal ROM. Negative for: Deformity Neurologic/Psych: Positive for: Alert, Oriented - ECG O2 Sat by Pulse Oximetry: 99 (RA) Pulse Ox Interpretation: Normal Medical Decision Making Medical Decision Making: Time: 1433 Initial Impression: dysuria and suprapubic pain. Differential diagnosis is UTI Initial Plan: --Urine dipstick --Urine culture ----- Scribe Attestation: Documented by Param Chan, acting as a scribe for Rex Garcia MD. Provider Scribe Attestation: All medical record entries made by the Scribe were at my direction and personally dictated by me. I have reviewed the chart and agree that the record accurately reflects my personal performance of the history, physical exam, medical decision making, and the department course for this patient. I have also personally directed, reviewed, and agree with the discharge instructions and disposition. Disposition - Clinical Impression Clinical Impression: UTI (urinary tract infection) - Patient ED Disposition Is Patient to be Admitted: No Counseled Patient/Family Regarding: Studies Performed, Diagnosis, Need For Followup - Disposition Referrals: [facility] [Outside] Disposition: Routine/Home Disposition Time: 14:45 Condition: GOOD Additional Instructions: NATALIA ZHOU, thank you for letting us take care of you today. Your provider was Rex Garcia MD and you were treated for ABD PAIN. The emergency medical care you received today was directed at your acute symptoms. If you were prescribed any medication, please fill it and take as directed. It may take several days for your symptoms to resolve. Return to the Emergency Department if your symptoms worsen, do not improve, or if you have any other problems. Please contact your doctor or call one of the physicians/clinics you have been referred to that are listed on the Patient Visit Information form that is included in your discharge packet. Bring any paperwork you were given at discharge with you along with any medications you are taking to your follow up visit. Our treatment cannot replace ongoing medical care by a primary care provider outside of the emergency department. Thank you for allowing the [facility] team to be part of your care today. If you had an X-Ray or CT scan: A Radiologist will review the ED reading if any change in treatment is needed we will contact you. If you had a blood, urine, or wound culture: It will take several days for the results, if any change in treatment is needed we will contact you. If you had an STI test: It will take 48 hours for the results. Please call after 1 week if you have not heard back. Instructions: Urinary Tract Infections in Adults Forms: [employer] (Hungarian)
[2018-05-22 15:40] VITALS: BP 128/76; PULSE 78; RESP 19; TEMP 97.7
[2018-05-23 07:15] VITALS: O2SAT 99
== END 2018-05-22 15:41 | disposition home or self-care (01) ==
LOC: H.ER 14:06
DX: N39.0 Urinary tract infection, site not specified (principal); G35 Multiple sclerosis; Z82.49 Family history of ischemic heart disease and other diseases of the circulatory system; Z87.19 Personal history of other diseases of the digestive system; J45.909 Unspecified asthma, uncomplicated; M06.9 Rheumatoid arthritis, unspecified

== ENCOUNTER 2018-09-30 12:12 | Emergency (ER) | payer MEDICAID, OTHER ==
[2018-09-30 12:13] VITALS: BMI 30.7
[2018-09-30 12:51] VITALS: BP 114/72; O2SAT 100
[2018-09-30] MEDS ORDERED: Piperacillin/Tazobact 3.375 GM in Sodium Chloride 0.9% 100 ML IVPB STA (13:03)
--- NOTE | 2018-09-30 13:13 | ED PDOC ---
HPI: Dental Pain/Injury Time Seen by Provider: 09/30/18 12:50 Chief Complaint (Nursing): Dental Pain Chief Complaint (Provider): Dental Pain History Per: Patient History/Exam Limitations: no limitations Onset/Duration Of Symptoms: Days (x5) Current Symptoms Are (Timing): Still Present Additional Complaint(s): Patient is a 28 y/o female who states five days ago she developed left-sided teeth and facial pain. Patient claims three days ago she had a fever of 101 and took Ibuprofen for relief. Patient reports she went to the dentist two days ago and was referred to specialist for this pain. Patient has since scheduled an appointment with a specialist for 10/06/2018. Patient has also been self- medicating herself [place] 500 mg [place] Patient states the fever returned this morning so she decided to take 400 mg of Ibuprofen at 7:00 this morning. Patient denies nasal congestion, cough, trauma, body aches, sore throat, and numbness or weakness. PCP: Dr. Arjun Peguero Past Medical History Reviewed: Historical Data, Nursing Documentation, Vital Signs Vital Signs: Last Vital Signs Temp 98.9 F 09/30/18 12:49 Pulse 89 09/30/18 12:49 Resp 16 09/30/18 12:49 BP 114/72 09/30/18 12:49 Pulse Ox 100 09/30/18 12:49 - Medical History PMH: Anemia, Anxiety, Arthritis (RA - not on steroids or DMARDs), Asthma (NEVER HOSPITALIZED), Back Problems, Depression, Fibromyalgia, Gastritis (NO LONGER ON MED.), Migraine, Multiple Sclerosis, Rheumatoid Arthritis Denies: Chronic Kidney Disease - Surgical History Surgical History: Endoscopy, Tonsillectomy Denies: CABG - Family History Family History: States: CAD - Immunization History Hx Tetanus Toxoid Vaccination: No Hx Influenza Vaccination: No Hx Pneumococcal Vaccination: No - Home Medications Home Medications: Ambulatory Orders Medication Instructions Recorded Trazodone HCl 50 mg PO HS PRN 07/27/14 Famotidine 20 mg PO DAILY 04/17/16 Ferrous Sulfate 325 mg PO BID 04/17/16 Folic Acid 1 mg PO DAILY 04/17/16 Indomethacin 25 mg PO TID 04/17/16 Lexapro 20 mg PO DAILY 04/17/16 Mobic 15 mg PO DAILY 04/17/16 Riboflavin 100 mg PO TID 04/17/16 Topamax 100 mg PO BID 04/17/16 Meclizine [Meclizine*] 25 mg PO Q6 #30 tab 05/26/16 Ondansetron ODT [Zofran ODT] 1 odt PO BID PRN #10 odt 05/26/16 Ibuprofen [Motrin] 600 mg PO TID PRN #30 tab 08/14/16 Prednisone 50 mg PO DAILY #4 tablet 08/14/16 Nitrofurantoin Macrocrystals 100 mg PO BID #14 cap 03/27/17 [Macrobid] Acetaminophen/Butalbital/Caf 1 tab PO Q8 #10 tab 04/02/17 [Fioricet] Albuterol HFA [Ventolin HFA 90 2 puff IH 07/22/17 mcg/actuation (8 g)] Loratadine/Pseudoephedrine 5 - 120 mg PO 07/22/17 [Claritin-D 24 Hour Tablet] Meclizine HCl [Motion Sickness II] 25 mg PO 07/22/17 Ondansetron ODT [Zofran ODT] 1 odt PO Q6 PRN #20 odt 08/24/17 Ibuprofen [Motrin] 600 mg PO TID 7 Days tab 11/11/17 PrednisoLONE [Prelone] 40 mg PO DAILY #1 bottle 01/23/18 Amoxicillin/Clavulanate [Augmentin 1 tab PO BID #20 tab 09/30/18 875 MG-125 MG] Naproxen [Naprosyn] 500 mg PO BID PRN #10 tab 09/30/18 - Allergies Allergies/Adverse Reactions: Allergies Allergy/AdvReac Type Severity Reaction Status Date / Time latex Allergy RASH Verified 09/30/18 12:45 Latex, Natural Rubber AdvReac RASH Verified 09/30/18 12:45 Review of Systems ROS Statement: Except As Marked, All Systems Reviewed And Found Negative Constitutional: Positive for: Fever. Negative for: Other (body aches) ENT: Positive for: Other (Left-sided teeth and facial pain). Negative for: Nose Congestion, Throat Pain (soreness) Respiratory: Negative for: Cough Neurological: Negative for: Weakness, Numbness Physical Exam - Reviewed Nursing Documentation Reviewed: Yes Vital Signs Reviewed: Yes - Physical Exam Appears: Positive for: No Acute Distress Head Exam: Positive for: ATRAUMATIC, NORMAL INSPECTION, NORMOCEPHALIC Eye Exam: Positive for: Normal appearance, EOMI, PERRL ENT: Positive for: Normal ENT Inspection (without fluctuance or break in skin integrity), Other (left maxillary area with mild tenderness and swelling as well as faint erythema; dentition intact with no tenderness or gingival swelling ). Negative for: Pharyngeal Erythema (or tonsillar erythema) Respiratory: Positive for: Normal Breath Sounds (clear to auscultation bilaterally). Negative for: Stridor Neurological/Psych: Positive for: Alert, Oriented (x3). Negative for: Other (Aphasia) - Laboratory Results Result Diagrams: 09/30/18 13:25 09/30/18 13:25 - ECG O2 Sat by Pulse Oximetry: 100 (RA) Pulse Ox Interpretation: Normal Medical Decision Making Medical Decision Making: Time: 1302 Impression: Facial Swelling Plan: CMP Urine CBC Zosyn Blood Culture IV Insertion Pt. informed of results and advised to f/u with PMD and dentist without fail but is to return to ED immediately if symptoms worsen. Pt. agrees with plan and care. Scribe Attestation: Documented by Bubba Ramirez, acting as a scribe Mikal Reid PA-C. Provider Scribe Attestation: All medical record entries made by the Scribe were at my direction and personall y dictated by me. I have reviewed the chart and agree that the record accurately reflects my personal performance of the history, physical exam, medical decision making, and the department course for this patient. I have also personally directed, reviewed, and agree with the discharge instructions and disposition. Disposition - Clinical Impression Clinical Impression: Facial cellulitis - Patient ED Disposition Is Patient to be Admitted: No - Disposition Referrals: Arjun Peguero MD [Family Provider] - Disposition: Routine/Home Disposition Time: 14:10 Condition: STABLE Additional Instructions: FOLLOW UP WITH DR. PEGUERO AND YOUR DENTIST WITHOUT FAIL FOR FURTHER EVALUATION RETURN TO ED IMMEDIATELY IF SYMPTOMS WORSEN. NATALIA ZHOU, thank you for letting us take care of you today. Your provider was Meenu Rene MD and you were treated for FACE SWELLING,DENTAL PAIN. The emergency medical care you received today was directed at your acute symptoms. If you were prescribed any medication, please fill it and take as directed. It may take several days for your symptoms to resolve. Return to the Emergency Department if your symptoms worsen, do not improve, or if you have any other problems. Please contact your doctor or call one of the physicians/clinics you have been referred to that are listed on the Patient Visit Information form that is included in your discharge packet. Bring any paperwork you were given at discharge with you along with any medications you are taking to your follow up visit. Our treatment cannot replace ongoing medical care by a primary care provider outside of the emergency department. Thank you for allowing the [facility] team to be part of your care today. If you had an X-Ray or CT scan: A Radiologist will review the ED reading if any change in treatment is needed we will contact you. If you had a blood, urine, or wound culture: It will take several days for the results, if any change in treatment is needed we will contact you. If you had an STI test: It will take 48 hours for the results. Please call after 1 week if you have not heard back. Prescriptions: Amoxicillin/Clavulanate [Augmentin 875 MG-125 MG] 1 tab PO BID #20 tab Naproxen [Naprosyn] 500 mg PO BID PRN #10 tab PRN Reason: Pain Instructions: Cellulitis (Skin Infection), Adult (DC) Forms: [employer] (Mozambican), [facility] ED School/Work Excuse Print Language: SAMI
[2018-09-30] MEDS ORDERED: Piperacillin/Tazobact 3.375 gm Inj IVPB ONE (13:33)
[2018-09-30 13:42] LABS: BASO % 0.3 % (0.0-2.0); EOS % 0.3 % (0.0-4.0); HEMOGLOBIN 12.9 g/dL (12.0-16.0); LYMPH # 1.4 K/uL (1.0-4.3); LYMPH % 16.2 % (20.0-40.0); MEAN CELL VOLUME 84.2 fl (81.0-99.0); MEAN CORPUSCULAR HEMOGLOBIN 27.5 pg (27.0-31.0); MEAN CORPUSCULAR HGB CONC 32.6 g/dL (33.0-37.0); MEAN PLATELET VOLUME 8.9 fl (7.2-11.7); MONO # 0.5 K/uL (0.0-0.8); MONO % 6.1 % (0.0-10.0); NEUT # 6.8 K/uL (1.8-7.0); NEUT % 77.1 % (50.0-75.0); RBC 4.7 Mil/uL (3.80-5.20); WHITE BLOOD COUNT 8.8 K/uL (4.8-10.8)
[2018-09-30 13:58] LABS: ALB/GLOB RATIO 1.1 (1.0-2.1); ALBUMIN 4.4 g/dL (3.5-5.0); ALT/SGPT 15 U/L (9-52); AST/SGOT 18 U/L (14-36); BLOOD UREA NITROGEN 6 mg/dl (7-17); CALCIUM 9.6 mg/dL (8.4-10.2); GFR NON-AFRICAN AMERICAN > 60
[2018-09-30 14:07] VITALS: PULSE 80; RESP 18; TEMP 99.6
== END 2018-09-30 14:45 | disposition home or self-care (01) ==
LOC: H.ER 12:12
DX: L03.211 Cellulitis of face (principal); Z86.59 Personal history of other mental and behavioral disorders; G35 Multiple sclerosis; J45.909 Unspecified asthma, uncomplicated; M06.9 Rheumatoid arthritis, unspecified; Z82.49 Family history of ischemic heart disease and other diseases of the circulatory system; Z87.19 Personal history of other diseases of the digestive system
CPT/HCPCS: 80053; 81025; 85025; 87040; 96374; 99283; J1885; J2543

== ENCOUNTER 2018-10-01 12:47 | Emergency (ER) | payer MEDICAID ==
[2018-10-01 12:48] VITALS: BMI 30.7
[2018-10-01 13:03] VITALS: RESP 16; O2SAT 99
[2018-10-01 14:34] LABS: BASO % 0.2 % (0.0-2.0); EOS % 0.4 % (0.0-4.0); HEMOGLOBIN 12.2 g/dL (12.0-16.0); LYMPH # 1.6 K/uL (1.0-4.3); LYMPH % 18.3 % (20.0-40.0); MEAN CELL VOLUME 83.6 fl (81.0-99.0); MEAN CORPUSCULAR HEMOGLOBIN 27.1 pg (27.0-31.0); MEAN CORPUSCULAR HGB CONC 32.3 g/dL (33.0-37.0); MONO # 0.7 K/uL (0.0-0.8); MONO % 7.6 % (0.0-10.0); NEUT # 6.6 K/uL (1.8-7.0); NEUT % 73.5 % (50.0-75.0); NRBC % 0.1 % (0.0-0.0); RBC 4.53 Mil/uL (3.80-5.20); RED CELL DISTRIBUTION WIDTH 15.3 % (11.5-14.5); WHITE BLOOD COUNT 8.9 K/uL (4.8-10.8)
[2018-10-01 14:47] LABS: GRANULAR CAST 2 /lpf (0-1); SQUAMOUS EPITHIAL 9 /hpf (0-5); URINE BACTERIA MOD (<OCC); URINE BILIRUBIN NEGATIVE (NEGATIVE); URINE BLOOD SMALL (NEGATIVE); URINE CLARITY CLOUDY (Clear); URINE COLOR YELLOW (YELLOW); URINE GLUCOSE (UA) 50 mg/dL (NEGATIVE); URINE LEUKOCYTE ESTERASE MOD Leu/uL (Negative); URINE PROTEIN 100 mg/dL (NEGATIVE)
[2018-10-01 14:50] LABS: ALB/GLOB RATIO 1.1 (1.0-2.1); ALBUMIN 4.3 g/dL (3.5-5.0); ALT/SGPT 25 U/L (9-52); AST/SGOT 19 U/L (14-36); BLOOD UREA NITROGEN 9 mg/dl (7-17); CALCIUM 9.2 mg/dL (8.4-10.2); GFR NON-AFRICAN AMERICAN > 60
[2018-10-01] MEDS ORDERED: ceFAZolin 1 GM in Sodium Chloride 0.9% 100 ML IVPB ONE (15:25)
[2018-10-01] MEDS ORDERED: Sodium Chloride 0.9% 1,000 ML IV ONE (15:30)
--- NOTE | 2018-10-01 17:22 | ED PDOC ---
HPI: Dental Pain/Injury Time Seen by Provider: 10/01/18 14:05 Chief Complaint (Nursing): Abnormal Skin Integrity Chief Complaint (Provider): Cellulitis History Per: Patient History/Exam Limitations: no limitations Onset/Duration Of Symptoms: Days (two) Additional Complaint(s): Pt presents to the ED with same complaint as 24 hours ago where she was tx for cellulitis and a dental infection with augmentin. Pt complains today that it is still present. The patient skin is mildly pink in the region of the left cheek and mildly tender as well. Pt is afebrile and has normal WBC count Past Medical History Vital Signs: Last Vital Signs Temp 97.3 F L 10/01/18 12:59 Pulse 79 10/01/18 12:59 Resp 16 10/01/18 12:59 BP 131/73 10/01/18 12:59 Pulse Ox 99 10/01/18 12:59 - Medical History PMH: Anemia, Anxiety, Arthritis (RA - not on steroids or DMARDs), Asthma (NEVER HOSPITALIZED), Back Problems, Depression, Fibromyalgia, Gastritis (NO LONGER ON MED.), Migraine, Multiple Sclerosis, Rheumatoid Arthritis Denies: Chronic Kidney Disease - Surgical History Surgical History: Endoscopy, Tonsillectomy Denies: CABG - Family History Family History: States: Unknown Family Hx, CAD - Immunization History Hx Tetanus Toxoid Vaccination: No Hx Influenza Vaccination: No Hx Pneumococcal Vaccination: No - Home Medications Home Medications: Ambulatory Orders Medication Instructions Recorded Trazodone HCl 50 mg PO HS PRN 07/27/14 Famotidine 20 mg PO DAILY 04/17/16 Ferrous Sulfate 325 mg PO BID 04/17/16 Folic Acid 1 mg PO DAILY 04/17/16 Indomethacin 25 mg PO TID 04/17/16 Lexapro 20 mg PO DAILY 04/17/16 Mobic 15 mg PO DAILY 04/17/16 Riboflavin 100 mg PO TID 04/17/16 Topamax 100 mg PO BID 04/17/16 Meclizine [Meclizine*] 25 mg PO Q6 #30 tab 05/26/16 Ondansetron ODT [Zofran ODT] 1 odt PO BID PRN #10 odt 05/26/16 Ibuprofen [Motrin] 600 mg PO TID PRN #30 tab 08/14/16 Prednisone 50 mg PO DAILY #4 tablet 08/14/16 Nitrofurantoin Macrocrystals 100 mg PO BID #14 cap 03/27/17 [Macrobid] Acetaminophen/Butalbital/Caf 1 tab PO Q8 #10 tab 04/02/17 [Fioricet] Albuterol HFA [Ventolin HFA 90 2 puff IH 07/22/17 mcg/actuation (8 g)] Loratadine/Pseudoephedrine 5 - 120 mg PO 07/22/17 [Claritin-D 24 Hour Tablet] Meclizine HCl [Motion Sickness II] 25 mg PO 07/22/17 Ondansetron ODT [Zofran ODT] 1 odt PO Q6 PRN #20 odt 08/24/17 Ibuprofen [Motrin] 600 mg PO TID 7 Days tab 11/11/17 PrednisoLONE [Prelone] 40 mg PO DAILY #1 bottle 01/23/18 Amoxicillin/Clavulanate [Augmentin 1 tab PO BID #20 tab 09/30/18 875 MG-125 MG] Naproxen [Naprosyn] 500 mg PO BID PRN #10 tab 09/30/18 Cephalexin [cephalexin] 500 mg PO QID #40 cap 10/01/18 Diclofenac Potassium 50 mg PO BID #20 tablet 10/01/18 - Allergies Allergies/Adverse Reactions: Allergies Allergy/AdvReac Type Severity Reaction Status Date / Time latex Allergy RASH Verified 10/01/18 12:59 Latex, Natural Rubber AdvReac RASH Verified 10/01/18 12:59 Review of Systems Constitutional: Negative for: Fever Eyes: Positive for: Pain. Negative for: Vision Change, Conjunctivae Inflammation, Eyelid Inflammation, Redness Skin: Positive for: Other (erythemity) Physical Exam - Reviewed Nursing Documentation Reviewed: Yes Vital Signs Reviewed: Yes - Physical Exam Appears: Positive for: Well, Non-toxic, No Acute Distress Head Exam: Positive for: ATRAUMATIC, NORMAL INSPECTION Skin: Positive for: Warm, Pallor. Negative for: Diaphoresis, Rash Eye Exam: Positive for: Normal appearance, EOMI, PERRL, Periorbital tenderness. Negative for: Nystagmus, Periorbital swelling, Conjunctival injection, Scleral icterus Neck: Positive for: Normal, Painless ROM, Supple Cardiovascular/Chest: Positive for: Regular Rate, Rhythm Respiratory: Positive for: Normal Breath Sounds Pulses-Carotid (L): 2+ Pulses-Carotid (R): 2+ Pulses-Radial (L): 2+ Pulses-Radial (R): 2+ - Laboratory Results Result Diagrams: 10/01/18 14:22 10/01/18 14:22 Lab Results: Troponin I < 0.0120 ng/mL (0.00-0.120) 10/01/18 14:22 Total Bilirubin 0.5 mg/dl (0.2-1.3) 10/01/18 14:22 AST 19 U/L (14-36) 10/01/18 14:22 ALT 25 U/L (9-52) 10/01/18 14:22 Alkaline Phosphatase 60 U/L (38-126) 10/01/18 14:22 Total Protein 8.2 G/DL (6.3-8.2) 10/01/18 14:22 Albumin 4.3 g/dL (3.5-5.0) 10/01/18 14:22 Globulin 3.9 gm/dL (2.2-3.9) 10/01/18 14:22 Albumin/Globulin Ratio 1.1 (1.0-2.1) 10/01/18 14:22 Urine Color Yellow (YELLOW) 10/01/18 14:22 Urine Clarity Cloudy (Clear) 10/01/18 14:22 Urine pH 5.0 (5.0-8.0) 10/01/18 14:22 Ur Specific [place] 1.023 (1.003-1.030) 10/01/18 14:22 Urine Protein 100 mg/dL (NEGATIVE) 10/01/18 14:22 Urine Glucose (UA) 50 mg/dL (NEGATIVE) 10/01/18 14:22 Urine Ketones 20 mg/dL (NEGATIVE) 10/01/18 14:22 Urine Blood Small (NEGATIVE) 10/01/18 14:22 Urine Nitrate Negative (NEGATIVE) 10/01/18 14:22 Urine Bilirubin Negative (NEGATIVE) 10/01/18 14:22 Urine Urobilinogen 2.0 mg/dL (0.2-1.0) H 10/01/18 14:22 Ur Leukocyte Esterase Mod Pam/uL (Negative) 10/01/18 14:22 Urine RBC (Auto) 3 /hpf (0-3) 10/01/18 14:22 Urine Microscopic WBC 16 /hpf (0-5) H 10/01/18 14:22 Ur Squamous Epith Cells 9 /hpf (0-5) H 10/01/18 14:22 Urine Bacteria Mod (<OCC) H 10/01/18 14:22 Granular Casts (Auto) 2 /lpf (0-1) 10/01/18 14:22 - ECG O2 Sat by Pulse Oximetry: 99 Disposition - Clinical Impression Clinical Impression: Cellulitis of face - Patient ED Disposition Is Patient to be Admitted: No Doctor Will See Patient In The: Office Counseled Patient/Family Regarding: Diagnosis, Need For Followup, Rx Given - Disposition Disposition: Routine/Home Disposition Time: 17:22 Condition: STABLE Additional Instructions: Continue with antibiotics given yesterday as well as the one given today Return to ED if swelling increases, redness increases or if you develop a fever >102F take meds with acetaminophin as well Prescriptions: Cephalexin [cephalexin] 500 mg PO QID #40 cap Diclofenac Potassium 50 mg PO BID #20 tablet Instructions: Cellulitis and Erysipelas (Skin Infections), Cellulitis (Skin Infection), Adult (DC)
[2018-10-01 17:39] VITALS: BP 123/73; PULSE 88; TEMP 98.1
== END 2018-10-01 17:36 | disposition home or self-care (01) ==
LOC: H.ER 12:47
DX: L03.211 Cellulitis of face (principal); G35 Multiple sclerosis
CPT/HCPCS: 80053; 81003; 81025; 84484; 85025; 96374; 99283; J0690; J1885; J7030